=== PATIENT | female | born 1935 | race African-American/Black ===

== ENCOUNTER 2017-02-19 19:07 | Inpatient (IN) ==
[2017-02-19] MEDS ORDERED: SODIUM CHLORIDE 0.9% 500 ML IV STA (20:02)
[2017-02-19] MEDS ORDERED: hydrALAZINE 20 MG/1 ML VIAL IV STA ×2 (20:10→22:00)
[2017-02-19 20:13] LABS: Basophils % 0.2 % (0.0-0.8); Immature Granulocytes % 0.5 %; Immature Granulocytes Absolute 0.05 #; Lymphocytes # 1.6 10*3/uL (1.4-4.0); Lymphocytes % 15.9 % (21.3-54.2); Mean Corpuscular HGB Conc 33.3 GM/DL (32-36); Mean Corpuscular Hemoglobin 29 PG (27-34); Mean Corpuscular Volume 87.7 FL (87-102); Mean Platelet Volume 10.4 FL (9.6-12.0); Monocytes % 9.8 % (1.7-12.7); Neutrophils # 7.4 10*3/uL (1.4-7.4); Neutrophils % 73.6 % (38.7-73.9); Platelet Count 192 T/CUMM (130-400); Red Blood Count 4.79 MC/CUMM (3.8-5.5); Red Cell Distribution Width 14.2 % (9.3-17.3)
[2017-02-19] MEDS ORDERED: hydrALAZINE 20 MG/1 ML VIAL ONE (20:34)
[2017-02-19 20:42] LABS: Albumin 3.4 G/DL (3.4-5.0); Bilirubin,Total 0.8 MG/DL (0.2-1.0); Calcium 9.9 MG/DL (8.5-10.1); Magnesium 2.4 MG/DL (1.8-2.4); Potassium 3.8 MMOL/L (3.5-5.1); Total Protein 7.3 G/DL (6.4-8.3)
--- NOTE | 2017-02-19 20:44 | XRay Report ---
Referring Physician: Nirmal Mercado Exam: XR lumbar spine AP/LAT Date: February 19, 2017 at 8:11 PM Reason: Back pain Comparison: None Findings: The lumbar vertebral bodies are normal in height. The patient is slightly rotated on both the AP and lateral views, but there appears to be grade 1 anterolisthesis at L4-L5. There is also multilevel facet arthropathy which is particularly prominent at L4-L5. Mild multilevel disc space narrowing is also present. No acute osseous process is identified. Prominent calcified plaque is noted at the abdominal aorta. Impression: Multilevel degenerative change at the lumbar spine as described above. PROCEDURE INTERPRETED AT [facility] DEPARTMENT OF RADIOLOGY Final Report Signed by: Dr. Alirio Romero
--- NOTE | 2017-02-19 21:27 | Emergency Department Note ---
Huy Dalal Manpreet, am scribing for, and in the presence of, Nirmal Mercado MD 20:16. Rogelio Dalal Charles R, MD, personally performed the services described in this documentation, ascribed by Braydon Son in my presence, and it is both accurate and complete . Arrival - Arrival Chief Complaint: Back ED Nursing Triage Note: C/O Lower back pain/strong odor to urine. Onset 2 weeks ago. Denies seeking medical attention about c/o until tonight. Denies fever. Mode of Arrival: Stretcher Source: Patient Time Seen by Provider: 02/19/17 19:20 - History of Present Illness HPI Narrative: Pt is a 81 y/o female, with PMHx of Breast CA, who presents to the ED with CC of back pain since 3 weeks ago. Pt also reports of increased urinary frequency and urinary incontinence. Pt lives alone in an apartment and states she has been in bed for three days. Pt denies CP, SOB, or dysuria. No other pains/ complaints reported to ED. Onset (ago): week(s) Consistency: constant Severity: moderate Severity scale (1-10): 3 Date of Last Menstrual Period: PM Allergies/Adverse Reactions: Allergies Allergy/AdvReac Type Severity Reaction Status Date / Time No Known Allergies Allergy Verified 02/19/17 19:15 Home Medications: Home Medications Medication Instructions Recorded Confirmed Type Donepezil [Aricept] 10 mg PO BEDTIME 02/19/17 02/19/17 History Furosemide Tab [Lasix Tab] 40 mg PO DAILY 02/19/17 02/19/17 History Losartan/Hydrochlorothiazide 1 each PO DAILY 02/19/17 02/19/17 History [Losartan-Hctz 100-25 mg Tab] Memantine HCl [Namenda XR] 14 mg PO DAILY 02/19/17 02/19/17 History Metoprolol Tartrate 100 mg PO DAILY 02/19/17 02/19/17 History Potassium Chloride [Klor-Con M20] 40 meq PO DAILY 02/19/17 02/19/17 History Sertraline [Zoloft] 50 mg PO DAILY 02/19/17 02/19/17 History Review of System - Review of System 12 point system: reviewed and no additional remarkable complaints except as stated - Review of System Constitutional: Absent: chills, diaphoresis, fever Respiratory: Absent: cough, respiratory distress, wheezing Cardiovascular: Absent: chest pain, dyspnea on exertion Genitourinary female: Absent: abnormal menses Musculoskeletal: Present: lower back pain. Absent: arm pain, leg pain Neurological: Absent: headache, weakness Medical,Surgical,& Family Hx - Medical History Reproductive: History of: Breast Cancer - Social History Smoking Status: Never smoker Frequency of Alcohol Use: None Type of Drug Use: None Exam Vital Signs: Vital Signs Temperature 98.5 F 02/19/17 19:07 Pulse Rate 79 02/19/17 19:07 Respiratory Rate 20 02/19/17 19:07 Blood Pressure 214/113 02/19/17 19:07 O2 Sat by Pulse Oximetry 98 02/19/17 19:07 - General General appearance: alert - Head Head exam: Present: atraumatic, normocephalic, normal inspection - Eye Eye exam: Present: normal appearance, PERRL, EOMI - ENT ENT exam: Present: normal exam, normal oropharynx, mucous membranes moist, TM's normal bilaterally - Neck Neck exam: Present: normal inspection, full ROM, trachea midline. Absent: tenderness - Chest Chest inspection: Present: normal inspection, symmetric chest wall rise - Respiratory Respiratory exam: Present: rhonchi (Bilateral Rhonchi). Absent: normal lung sounds bilaterally - Cardiovascular Cardiovascular exam: Present: regular rate, normal rhythm, normal heart sounds, murmur (3/6 Systolic murmur ) - Abdominal Exam Abdominal exam: Present: distention, tenderness, normal bowel sounds. Absent: soft - Extremities Exam Extremities exam: Present: normal inspection. Absent: tenderness - Back Exam Back exam: Present: tenderness. Absent: normal inspection, full ROM - Neurological Exam Neurological exam: Present: alert, oriented X3, CN II-XII intact, reflexes normal - Psychiatric Psychiatric exam: Present: normal affect, normal mood - Skin Skin exam: Present: warm, dry, intact, normal color, other (Sacral stage II decubitus). Absent: pallor Course - Consultations Consultation #1: Hospitalist will admit patient Time: 22:09 Results - Labs CBC & BMP: 02/19/17 20:01 02/19/17 20:01 Lab Results: I have reviewed the patients labs Labs: Laboratory Tests 02/19/17 20:01 WBC 10.0 RBC 4.79 Hgb 14.0 Hct 42.0 MCV 87.7 MCH 29 Lymph % (Auto) 15.9 L Scott # (Auto) 1.0 H Laboratory Tests 02/19/17 20:01 Sodium 143 Potassium 3.8 Chloride 106 Carbon Dioxide 26 BUN 23 H Creatinine 1.20 H Glucose 117 H AST 65 H Globulin 3.9 H Albumin/Globulin Ratio 0.8 L Laboratory Tests 02/19/17 20:02 Urine pH 5.0 Ur Specific [place] 1.023 Urine Protein 30 Urine Ketones 5 Urine Nitrate Positive H Urine Urobilinogen < 2.0 H Urine RBC 6 Urine WBC 4 - Diagnostic Findings Procedure: Chest x-ray: report reviewed by me (1. Cardiomegaly. 2. There is minimal atelectasis within the right lower lung zone and there is also mild density at the peripheral aspect of the left lower lung zone, which is favored to represent soft tissue artifact. However, consolidation/pleural fluid is difficult to exclude in this region.), CT: report reviewed by me (CT Head w/o Contrast: 1. No acute intracranial process is identified. 2. Mild generalized cerebral atrophy/volume loss and probable chronic microvascular ischemic change. ), X-ray: report reviewed by me (X-ray Lumbar Spine: Multlilevel degenerative change at the lumbar spine as described above.) Critical Care Time Critical Care Time: Yes Total Critical Care Time: 60 Disposition Clinical Impression: Strain of lumbar region, History of breast cancer recurrent, Confusion, Sacral decubitus ulcer, Hypertensive urgency, UTI (urinary tract infection) Case discussed with: patient Disposition: Still a Patient Condition: Guarded Time of Disposition: 22:10
[2017-02-19 21:34] LABS: Apearance,Urine Slightly Hazy (Clear); Bacteria,Urine Moderate /HPF (Few); Bilirubin,Urine Negative (Negative); Blood, Urine Moderate mg/dL (Negative); Glucose,Urine (UA) Negative (Negative); Ketones,Urine 5 mg/dL (Negative); Mucus,Urine Many /LPF (Occasional); Nitrite,Urine Positive (Negative); Protein,Urine 30 MG/DL; RBC,Urine 6 /HPF (0-4); Urine Color Yellow (Yellow); Urine Specific Gravity 1.023 (1.001-1.035); Urine Urobilinogen < 2.0 EU/DL (0.2-1.0); WBC,Urine 4 /HPF (0-6)
[2017-02-19] MEDS ORDERED: cefTRIAXone 1,000 MG in SODIUM CHLORIDE 0.9% 100 ML IV STA (21:49)
--- NOTE | 2017-02-19 21:58 | CT Report ---
Referring physician: Nirmal Mercado Exam: CT brain without contrast Date: February 19, 2017 Comparison: None Reason: Confusion, elevated blood pressure The patient is an Emergency Department patient on March 01, 2017. Technique: Axial images of the head were obtained without the use of contrast. Total DLP was 970.1 mGy*cm. Findings: There is mild generalized cerebral atrophy/volume loss. There are also areas of low attenuation within the cerebral white matter bilaterally. This is nonspecific but is most consistent with chronic microvascular ischemic change. No hydrocephalus or midline shift is present. There is no evidence of recent intracranial hemorrhage, abnormal mass effect or an acute infarction. No acute osseous process is seen. The mastoid air cells and visualized paranasal sinuses are clear. Impression: 1. No acute intracranial process is identified. 2. Mild generalized cerebral atrophy/volume loss and probable chronic microvascular ischemic change. The CT exam was performed using one or more of the following dose reduction techniques: Automated exposure control and adjustment of the mA and/or kV according to patient size. PROCEDURE INTERPRETED AT [facility] DEPARTMENT OF RADIOLOGY Final Report Signed by: Dr. Alirio Romero
[2017-02-19] MEDS ORDERED: cefTRIAXone 1,000 MG VIAL ONE (22:09)
--- NOTE | 2017-02-19 22:16 | XRay Report ---
Referring Physician: Nirmal Mercado Exam: XR chest 1V portable Date: February 19, 2017 at 9:55 PM Reason: Altered mental status Comparison: None Findings: The cardiac silhouette is enlarged. There is minimal atelectasis within the right lower lung zone. Density is also seen at the peripheral aspect of the left lower lung zone. This is favored to represent soft tissue artifact, but consolidation or mild pleural fluid is difficult to exclude in this region. No pneumothorax is identified. No acute osseous process is seen. Surgical clips are noted at the left axilla. Impression: 1. Cardiomegaly. 2. There is minimal atelectasis within the right lower lung zone and. There is also mild density at the peripheral aspect of the left lower lung zone, which is favored to represent soft tissue artifact. However, consolidation/pleural fluid is difficult to exclude in this region. PROCEDURE INTERPRETED AT [facility] DEPARTMENT OF RADIOLOGY Final Report Signed by: Dr. Alirio Romero
[2017-02-19] MEDS ORDERED: ACETAMINOPHEN 325 MG TABLET PO PRN (23:25)
[2017-02-19] MEDS ORDERED: hydrALAZINE 20 MG/1 ML VIAL IV PRN (23:56)
--- NOTE | 2017-02-19 23:59 | Hospitalist History & Physical ---
Assessment and Plan (1) Confusion Status: Acute Current Visit: Yes (2) Sacral decubitus ulcer Status: Acute Current Visit: Yes (3) Hypertensive urgency Status: Acute Current Visit: Yes (4) UTI (urinary tract infection) Status: Acute Assessment and plan: We will admit patient our service. Consult wound care. We will also consult physical therapy to evaluate the patient. Patient also need social media community manager involved. She definitely has urinary tract infection with a positive nitrites we need to follow up on the results of the culture. Continue home meds as appropriate. Given her situation I do not know how compliant she has been with her meds. We have some as needed hydralazine for elevated blood pressure. Reevaluate patient in the morning and adjust plans as appropriate Current Visit: Yes History of Present Illness Chief complaint: Skin breakdown and soiling on herself History of present illness: Ms. Espino is a 81 year old female with Past medical history significant for breast cancer hypertension presents to our hospital tonight. According to the patient and she does have a history of dementia per review of her medications she could walk 2 weeks ago. She used the aid of a walker. She lives in apartment by herself. She reports for the past 2 weeks she really has not able to get out and walk. She says her son comes by and makes her breakfast in the mornings. Otherwise she lives alone. Her sister called check on her she could not get to the phone. Her sister arrived at the apartment and so what condition she was in and called EMS. EMS brought her up to our hospital for further evaluation. I was consulted to admit her through the emergency room Home Medications Medication Instructions Recorded Confirmed Type Donepezil [Aricept] 10 mg PO BEDTIME 02/19/17 02/19/17 History Furosemide Tab [Lasix Tab] 40 mg PO DAILY 02/19/17 02/19/17 History Losartan/Hydrochlorothiazide 1 each PO DAILY 02/19/17 02/19/17 History [Losartan-Hctz 100-25 mg Tab] Memantine HCl [Namenda XR] 14 mg PO DAILY 02/19/17 02/19/17 History Metoprolol Tartrate 100 mg PO DAILY 02/19/17 02/19/17 History Potassium Chloride [Klor-Con M20] 40 meq PO DAILY 02/19/17 02/19/17 History Sertraline [Zoloft] 50 mg PO DAILY 02/19/17 02/19/17 History Allergies Allergy/AdvReac Type Severity Reaction Status Date / Time No Known Allergies Allergy Verified 02/19/17 19:15 Medical,Surgical,& Family Hx - Medical History Reproductive: History of: Breast Cancer - Surgical History Reproductive Surgeries: Surgical HX of;: Breast Surgery, Hysterectomy - Family History Family History: Reports;: Family Cancer, Family Stroke - Social History Smoking Status: Never smoker Frequency of Alcohol Use: None Type of Drug Use: None 12 point system: reviewed and no additional remarkable complaints except as stated Exam - Constitutional Vitals: Period Temp Pulse Resp BP Sys/Carl Pulse Ox Last 24 Hr 98.5 F-98.5 F 79-79 20-20 214-214/113-113 98 - General General appearance: alert somewhat confused - Head Head exam: Present: atraumatic, normocephalic, normal inspection - Eye Eye exam: Present: normal appearance, PERRL, EOMI - ENT ENT exam: Present: normal exam, normal oropharynx, mucous membranes moist, TM's normal bilaterally - Neck Neck exam: Present: normal inspection, full ROM, trachea midline. - Chest Chest inspection: Present: normal inspection, symmetric chest wall rise - Respiratory Respiratory exam: Present: Grossly clear - Cardiovascular Cardiovascular exam: Present: regular rate, normal rhythm, normal heart sounds, systolic murmur - Abdominal Exam Abdominal exam: Present: distention, tenderness, normal bowel sounds. Absent: soft - Extremities Exam Extremities exam: Present: normal inspection. Absent: tenderness - Back Exam Back exam: Present: tenderness. Absent: normal inspection, full ROM - Neurological Exam Neurological exam: Present: alert, oriented X3, CN II-XII intact, reflexes normal - Psychiatric Psychiatric exam: Present: normal affect, normal mood - Skin Skin exam: Present: warm, dry, intact, normal color, patient has some skin breakdown on her sacral area most likely stage II Results - Labs CBC & BMP: 02/19/17 20:01 02/19/17 20:01
[2017-02-20] MEDS: SODIUM CHLORIDE 0.9% 1,000 ML IV SCH ×2 (02:11→18:45)
[2017-02-20 05:49] LABS: Basophils % 0.2 % (0.0-0.8); Hematocrit 41.4 VOL% (35.7-47.0); Hemoglobin 13.5 GM/DL (12.0-16.0); Immature Granulocytes % 0.4 %; Immature Granulocytes Absolute 0.04 #; Lymphocytes # 1.2 10*3/uL (1.4-4.0); Lymphocytes % 13.1 % (21.3-54.2); Mean Corpuscular HGB Conc 32.6 GM/DL (32-36); Mean Corpuscular Hemoglobin 28 PG (27-34); Mean Platelet Volume 11.5 FL (9.6-12.0); Monocytes # 0.8 10*3/uL (0.11-0.8); Neutrophils % 77.3 % (38.7-73.9); Platelet Count 171 T/CUMM (130-400); Red Blood Count 4.76 MC/CUMM (3.8-5.5); Red Cell Distribution Width 14.5 % (9.3-17.3); White Blood Count 9.1 T/CUMM (4-12)
[2017-02-20 06:10] LABS: Hypochromasia 1+; Ovalocytes Slight; Platelet Estimate Normal
[2017-02-20 06:35] LABS: Calcium 9.5 MG/DL (8.5-10.1); Osmolality,Calculated 284.1 MOS/KG (273-304); Potassium 5.1 MMOL/L (3.5-5.1)
--- NOTE | 2017-02-20 08:25 | Physician Query Form ---
CLICK EDIT DOCUMENT TO SELECT QUERY ANSWER --> OK --> SIGN Sara Chow RN, CCDS Certified Clinical Closed Circuit Screen Watcher W) [phone] (f) [phone] [email or web address] PROVIDERS: Make your selection(s) from the choices in EACH section by typing an "x" and enter comments in the comment section. Please use your independent medical judgment in providing your response. This request does not imply that any particular answer is desired or expected. CLINICAL INDICATORS: (Providers should not edit this section) The medical record indicates that the patient was admitted with an UTI, Confusion, "alert somewhat confused", "history of dementia" and the patient had a CT of the brain. ACUITY: ( x) Acute ( ) Acute on Chronic ( ) Chronic ( ) Clinically unable to determine NATURE: ( ) Delirium due to general medical condition ( ) Dementia ( ) Encephalopathy (x ) Encephalopathy (Infectious) ( ) Unconscious ( ) Transient level of awareness ( ) Comatose ( ) Locked-in State ( ) Persistent Vegetative State ( ) Other, please specify: ( ) Clinically unable to determine Please indicate the underlying cause of the altered mental status (CHECK ALL THAT APPLY): ( ) Baseline dementia ( ) Alzheimer's disease ( ) Parkinson's disease ( ) Lewy body dementia ( ) Acute stroke ( ) Late effect of stroke ( ) Reactive (from emotional stress, psychological trauma) ( ) Due to narcotics/other drugs ( ) Post procedural delirium ( ) Transient ischemic attack ( ) Generalized cerebral edema ( ) Normal pressure hydrocephalus ( ) Psychiatric illness ( ) Other, please specify: ( ) Clinically unable to determine Please indicate if there is an infection, sepsis, dehydration or specific organ failure that is causing the dementia. Be specific with clarifying the relationship between that process and the mental status change. COMMENTS: Use of terms such as suspected, likely, or probable (associated with a specific diagnosis that is being evaluated, monitored, or treated as if it exists) are acceptable and can be restated in the discharge summary if not ruled out. MTDD
--- NOTE | 2017-02-20 09:05 | EKG Report ---
Stationary ECG Study [facility] ER Test Date: 02/19/2017 7:53:31 PM Pat Name: HANNAH KLEIN Department: Room: 223 Gender: F Audio Video Mechanic: : [id number] Requested by: Nirmal Chavez Order Number: [id number] Reading MD: LILIA KOEHLER Intervals Michael Rate: 73 P: 62 VA: 193 QRS: 158 QRSD: 96 T: 29 QT: 388 QTc: 414 Interpretive Statements SINUS RHYTHM At 73 bpm PATTERN CONSISTENT WITH PULMONARY DISEASE Possible old anterior NV NST POSSIBLE RIGHT VENTRICULAR HYPERTROPHY Electronically Signed On 02-25-17 15:14:10 CDT by LILIA KOEHLER [email or web address]
[2017-02-20] MEDS: ENOXAPARIN 40 MG/0.4 ML SYRINGE SUBCUT SCH (09:50)
[2017-02-20] MEDS: METOPROLOL TARTRATE 100 MG TABLET PO SCH (09:51)
[2017-02-20] MEDS: SERTRALINE 50 MG TABLET PO SCH (09:51)
[2017-02-20] MEDS: LOSARTAN/HCTZ 50-12.5 MG TABLET PO SCH (09:51)
[2017-02-20] MEDS: POTASSIUM CHLORIDE 20 MEQ TABLET PO SCH (09:51)
[2017-02-20] MEDS: FUROSEMIDE 40 MG TABLET PO SCH (09:51)
[2017-02-20] MEDS: MEMANTINE 5 MG TABLET PO SCH ×2 (09:51→22:05)
[2017-02-20] MEDS: DESITIN 4OZ/NYSTATIN 15 GRAM MIXTURE PASTE TOP SCH ×2 (11:45→22:05)
[2017-02-20] MEDS ORDERED: TUBERCULIN SKIN TEST 0.1 ML SYRINGE INTRADERM ONE (12:00)
--- NOTE | 2017-02-20 12:08 | Hospitalist Progress Note ---
Assessment and Plan - Time spent with patient Time spent with patient: Greater than 30 minutes (1) UTI (urinary tract infection) Status: Acute Assessment and plan: Continue current management. Current Visit: Yes (2) Weakness Status: Acute Assessment and plan: We will obtain a CT of the lumbar region. PT, OT and social work referral. I expect the patient will require rehab. Current Visit: Yes (3) Incontinence Status: Acute Assessment and plan: We will obtain a CT of the lumbar region. Current Visit: Yes (4) HTN (hypertension) Status: Acute Assessment and plan: Well-controlled continue current management. Current Visit: Yes Hospitalist: Subjective Interval history: Ms. Espino has no complaints. She is difficult to obtain information from however it appears she has been having progressively worsening weakness and unable to obtain any information regarding timeline of her incontinence. Exam - Constitutional Vitals: Period Temp Pulse Resp BP Sys/Carl Pulse Ox Last 24 Hr 98 F-99.4 F 74-83 17-20 162-168/66-81 95-98 General appearance: no acute distress - Head Head exam: Present: normocephalic, atraumatic - Eye Eye exam: Present: EOMI Pupils: Present: FREDDY - ENT ENT exam: Present: normal exam - Neck Neck exam: Present: normal inspection - Respiratory Respiratory exam: Present: clear to auscultation bilaterally. Absent: rhonchi, wheezes - Cardiovascular Cardiovascular exam: Present: regular rate and rhythm. Absent: gallop, rubs, systolic murmur - GI/Abdominal GI/Abdominal exam: Present: normal bowel sounds, soft. Absent: distended, firm , guarding, tenderness, rebound - Extremities Exam Extremities exam: Present: normal inspection. Absent: calf tenderness, edema - Neurological Exam Neurological exam: Present: other (Difficult to assess strength exam of her lower extremities) Results - Labs CBC & BMP: 02/20/17 04:30 02/20/17 04:30 Lab Results: I have reviewed the past 24 hour labs
--- NOTE | 2017-02-20 14:52 | CT Report ---
Exam: CT lumbar spine without contrast Date: February 20, 2017 Comparison: Lumbar spine x-rays February 19, 2017 Reason: Lower extremity weakness and incontinence Technique: Axial images of the lumbar spine were obtained without the use of contrast. Sagittal reformatted images were also acquired. Total DLP is 907.7 mGy*cm. Findings: There is minimal curvature of the mid lumbar spine to the left. Grade 1 anterolisthesis is also seen at L4-L5 (0.4 cm). No pars interarticularis defects are identified. The lumbar vertebral bodies are normal in height. There is mild disc space narrowing at the lower thoracic spine and L1-L2. Disc space heights otherwise appear fairly well maintained. Anterior marginal spurring is noted at multiple levels. There is mild degenerative change at the SI joints, mainly on the left. At T11-T12, there is a small posterior marginal osteophyte and mild to moderate bilateral facet arthropathy. There is minimal narrowing of the spinal canal and mild right neuroforaminal narrowing. At T12-L1, there is minimal posterior marginal spurring and mild bilateral facet arthropathy. No significant spinal canal stenosis or neuroforaminal narrowing is seen. At L1-L2, there is minimal posterior marginal spurring and moderate bilateral facet arthropathy. A minimal diffuse posterior disc bulge is also suspected. No spinal canal stenosis or neuroforaminal narrowing is seen. At L2-L3, there is a diffuse posterior disc bulge and moderate to severe bilateral facet arthropathy. This produces mild to moderate narrowing of the spinal canal but no significant neuroforaminal narrowing. At L3-L4, there is a diffuse posterior disc bulge, ligamentum flavum hypertrophy and severe bilateral facet arthropathy. This produces severe narrowing of the spinal canal and mild to moderate right neuroforaminal narrowing. At L4-L5, there is a diffuse posterior disc bulge, ligamentum flavum hypertrophy and severe bilateral facet arthropathy. There is also uncovering of the disc. This produces severe narrowing of the spinal canal and bilateral neuroforaminal narrowing, which is likely severe. At L5-S1, there is a diffuse posterior disc bulge, posterior marginal spurring and severe bilateral facet arthropathy, mainly on the left. The posterior marginal spurring is most prominent in the foraminal regions, particularly on the left. This produces mild narrowing of the spinal canal, severe left neuroforaminal narrowing and moderate right neuroforaminal narrowing. Scattered arterial calcification is present. There is also mild focal cortical scarring versus a angiomyolipoma at the lower pole of the left kidney, measuring 1 cm on image 35, series 4. Impression: 1. Extensive multilevel degenerative change at the lumbar spine as above, most prominent at L4-L5 and L5-S1. 2. A small area of fat attenuation is seen at the anterior aspect of the lower pole of the left kidney. This could represent focal cortical scarring or a small angiomyolipoma. PROCEDURE INTERPRETED AT [facility] DEPARTMENT OF RADIOLOGY Final Report Signed by: Dr. Alirio Romero
[2017-02-20] MEDS ORDERED: cefTRIAXone 1,000 MG in SODIUM CHLORIDE 0.9% 100 ML IV SCH (21:00)
[2017-02-20] MEDS: DONEPEZIL 10 MG TABLET PO SCH (22:05)
[2017-02-21 08:01] LABS: Basophils % 0.2 % (0.0-0.8); Eosinophils % 0.4 % (0.00-10.9); Hematocrit 37.5 VOL% (35.7-47.0); Hemoglobin 12.2 GM/DL (12.0-16.0); Immature Granulocytes % 0.2 %; Immature Granulocytes Absolute 0.02 #; Lymphocytes # 2.3 10*3/uL (1.4-4.0); Lymphocytes % 28.8 % (21.3-54.2); Mean Corpuscular HGB Conc 32.5 GM/DL (32-36); Mean Corpuscular Hemoglobin 29 PG (27-34); Mean Corpuscular Volume 88.4 FL (87-102); Mean Platelet Volume 10.4 FL (9.6-12.0); Monocytes # 0.7 10*3/uL (0.11-0.8); Monocytes % 8.2 % (1.7-12.7); Neutrophils % 62.2 % (38.7-73.9); Platelet Count 161 T/CUMM (130-400); Red Blood Count 4.24 MC/CUMM (3.8-5.5); Red Cell Distribution Width 14.7 % (9.3-17.3); White Blood Count 8.1 T/CUMM (4-12)
[2017-02-21 08:26] LABS: Calcium 8.8 MG/DL (8.5-10.1); Potassium 3.3 MMOL/L (3.5-5.1)
[2017-02-21] MEDS: PIPERACILLIN/TAZOBACTAM 3,375 MG in SODIUM CHLORIDE 0.9% 100 ML IV SCH ×2 (08:51→16:25)
[2017-02-21] MEDS: SODIUM CHLORIDE 0.9% 1,000 ML IV SCH (08:52)
[2017-02-21] MEDS: LOSARTAN/HCTZ 50-12.5 MG TABLET PO SCH (08:57)
[2017-02-21] MEDS: POTASSIUM CHLORIDE 20 MEQ TABLET PO SCH (08:57)
[2017-02-21] MEDS: MEMANTINE 5 MG TABLET PO SCH ×2 (08:57→22:09)
[2017-02-21] MEDS: SERTRALINE 50 MG TABLET PO SCH (08:57)
[2017-02-21] MEDS: FUROSEMIDE 40 MG TABLET PO SCH (08:58)
[2017-02-21] MEDS: METOPROLOL TARTRATE 100 MG TABLET PO SCH (08:58)
[2017-02-21] MEDS: ENOXAPARIN 40 MG/0.4 ML SYRINGE SUBCUT SCH (08:58)
[2017-02-21] MEDS: DESITIN 4OZ/NYSTATIN 15 GRAM MIXTURE PASTE TOP SCH ×2 (08:58→22:13)
--- NOTE | 2017-02-21 16:23 | Hospitalist Progress Note ---
Assessment and Plan - Time spent with patient Time spent with patient: Greater than 30 minutes (1) UTI (urinary tract infection) Status: Acute Assessment and plan: Continue current management. Current Visit: Yes (2) Weakness Status: Acute Assessment and plan: PT, OT and social work referral. I expect the patient will require rehab. Current Visit: Yes (3) Incontinence Status: Acute Assessment and plan: CT reveals Degenerative disease. Current Visit: Yes (4) HTN (hypertension) Status: Acute Assessment and plan: Well-controlled continue current management. Current Visit: Yes Hospitalist: Subjective Interval history: No complaints. Exam - Constitutional Vitals: Period Temp Pulse Resp BP Sys/Carl Pulse Ox Last 24 Hr 97.4 F-99.3 F 63-77 20-24 116-163/55-85 94-98 General appearance: no acute distress - Head Head exam: Present: normocephalic, atraumatic - Eye Eye exam: Present: EOMI Pupils: Present: FREDDY - ENT ENT exam: Present: normal exam - Neck Neck exam: Present: normal inspection - Respiratory Respiratory exam: Present: clear to auscultation bilaterally. Absent: rhonchi, wheezes - Cardiovascular Cardiovascular exam: Present: regular rate and rhythm. Absent: gallop, rubs, systolic murmur - GI/Abdominal GI/Abdominal exam: Present: normal bowel sounds, soft. Absent: distended, firm , guarding, tenderness, rebound - Extremities Exam Extremities exam: Present: normal inspection. Absent: calf tenderness, edema Results - Labs CBC & BMP: 02/21/17 07:50 02/21/17 07:50 Lab Results: I have reviewed the past 24 hour labs
[2017-02-21] MEDS: DONEPEZIL 10 MG TABLET PO SCH (22:09)
[2017-02-22] MEDS: PIPERACILLIN/TAZOBACTAM 3,375 MG in SODIUM CHLORIDE 0.9% 100 ML IV SCH ×3 (01:15→17:43)
[2017-02-22 06:22] LABS: Basophils % 0.2 % (0.0-0.8); Eosinophils # 0.1 10*3/uL (0.0-0.87); Hemoglobin 10.9 GM/DL (12.0-16.0); Immature Granulocytes % 0.5 %; Immature Granulocytes Absolute 0.03 #; Lymphocytes # 1.7 10*3/uL (1.4-4.0); Lymphocytes % 28.5 % (21.3-54.2); Mean Corpuscular HGB Conc 32.1 GM/DL (32-36); Mean Corpuscular Hemoglobin 29 PG (27-34); Mean Corpuscular Volume 89.7 FL (87-102); Mean Platelet Volume 10.6 FL (9.6-12.0); Monocytes # 0.7 10*3/uL (0.11-0.8); Neutrophils # 3.6 10*3/uL (1.4-7.4); Neutrophils % 58.8 % (38.7-73.9); Platelet Count 162 T/CUMM (130-400); Red Blood Count 3.79 MC/CUMM (3.8-5.5); Red Cell Distribution Width 14.6 % (9.3-17.3); White Blood Count 6.1 T/CUMM (4-12)
[2017-02-22 06:52] LABS: Calcium 8.6 MG/DL (8.5-10.1); Osmolality,Calculated 288.8 MOS/KG (273-304); Potassium 3.6 MMOL/L (3.5-5.1)
[2017-02-22] MEDS ORDERED: TUBERCULIN SKIN TEST 0.1 ML SYRINGE INTRADERM ONE (10:00)
[2017-02-22] MEDS: LOSARTAN/HCTZ 50-12.5 MG TABLET PO SCH (10:11)
[2017-02-22] MEDS: FUROSEMIDE 40 MG TABLET PO SCH (10:11)
[2017-02-22] MEDS: METOPROLOL TARTRATE 100 MG TABLET PO SCH (10:12)
[2017-02-22] MEDS: MEMANTINE 5 MG TABLET PO SCH ×2 (10:12→20:39)
[2017-02-22] MEDS: SERTRALINE 50 MG TABLET PO SCH (10:12)
[2017-02-22] MEDS: POTASSIUM CHLORIDE 20 MEQ TABLET PO SCH (10:12)
[2017-02-22] MEDS: ENOXAPARIN 40 MG/0.4 ML SYRINGE SUBCUT SCH (10:13)
[2017-02-22] MEDS: DESITIN 4OZ/NYSTATIN 15 GRAM MIXTURE PASTE TOP SCH ×2 (10:13→20:39)
--- NOTE | 2017-02-22 11:38 | Case Mgmt Physician Query Form ---
TB Signs and Symptoms Screening ([place]) INSTRUCTIONS: To be completed annually on residents/staff with a significant Tuberculin Skin Test (TST) upon admission/hire or a prior significant TST. To be completed on all staff at hire. Please respond to each listed symptom with an (X) in either the "YES" or "NO" box. Do you currently have any of the following symptoms: YES NO ( ) (x ) A cough If yes, is it: ( ) Productive ( ) Non- productive ( ) (x ) Hemoptysis (spitting up blood) ( ) (x ) Chest pains ( ) (x ) Weight Loss ( ) (x ) Fever ( ) (x ) Night Sweats (x ) ( ) Weakness ( ) (x) Loss of Appetite ( ) (x ) Difficulty Breathing If you answered YES" to any of the above questions, how long have symptoms been present? Comments: weeks MTDD
--- NOTE | 2017-02-22 13:13 | Hospitalist Progress Note ---
Assessment and Plan - Time spent with patient Time spent with patient: Greater than 30 minutes (1) UTI (urinary tract infection) Status: Acute Assessment and plan: Continue current management. Current Visit: Yes (2) Weakness Status: Acute Assessment and plan: PT, OT and social work referral. I expect the patient will require rehab. Current Visit: Yes (3) Incontinence Status: Acute Assessment and plan: CT reveals Degenerative disease. Current Visit: Yes (4) HTN (hypertension) Status: Acute Assessment and plan: Well-controlled continue current management. Current Visit: Yes Hospitalist: Subjective Interval history: No complaints. She remains weak. Exam - Constitutional Vitals: Period Temp Pulse Resp BP Sys/Carl Pulse Ox Last 24 Hr 97.5 F-98.3 F 60-71 20-20 135-162/47-75 99-99 General appearance: no acute distress - Head Head exam: Present: normocephalic, atraumatic - Eye Eye exam: Present: EOMI Pupils: Present: FREDDY - ENT ENT exam: Present: normal exam - Neck Neck exam: Present: normal inspection - Respiratory Respiratory exam: Present: clear to auscultation bilaterally. Absent: rhonchi, wheezes - Cardiovascular Cardiovascular exam: Present: regular rate and rhythm. Absent: gallop, rubs, systolic murmur - GI/Abdominal GI/Abdominal exam: Present: normal bowel sounds, soft. Absent: distended, firm , guarding, tenderness, rebound - Extremities Exam Extremities exam: Present: normal inspection. Absent: calf tenderness, edema Results - Labs CBC & BMP: 02/22/17 05:39 02/22/17 05:39 Lab Results: I have reviewed the past 24 hour labs
[2017-02-22] MEDS: SODIUM CHLORIDE 0.9% 1,000 ML IV SCH ×2 (14:15→14:30)
[2017-02-22] MEDS: DONEPEZIL 10 MG TABLET PO SCH (20:39)
[2017-02-23] MEDS: PIPERACILLIN/TAZOBACTAM 3,375 MG in SODIUM CHLORIDE 0.9% 100 ML IV SCH ×4 (01:06→23:59)
[2017-02-23] MEDS: LOSARTAN/HCTZ 50-12.5 MG TABLET PO SCH (10:29)
[2017-02-23] MEDS: METOPROLOL TARTRATE 100 MG TABLET PO SCH (10:30)
[2017-02-23] MEDS: POTASSIUM CHLORIDE 20 MEQ TABLET PO SCH (10:31)
[2017-02-23] MEDS: FUROSEMIDE 40 MG TABLET PO SCH (10:31)
[2017-02-23] MEDS: SERTRALINE 50 MG TABLET PO SCH (10:31)
[2017-02-23] MEDS: MEMANTINE 5 MG TABLET PO SCH ×2 (10:32→20:30)
[2017-02-23] MEDS: ENOXAPARIN 40 MG/0.4 ML SYRINGE SUBCUT SCH (10:32)
[2017-02-23] MEDS: DESITIN 4OZ/NYSTATIN 15 GRAM MIXTURE PASTE TOP SCH ×2 (10:33→20:31)
--- NOTE | 2017-02-23 10:49 | Hospitalist Progress Note ---
Assessment and Plan - Time spent with patient Time spent with patient: Greater than 30 minutes (1) UTI (urinary tract infection) Status: Acute Assessment and plan: Continue current management. Current Visit: Yes (2) Weakness Status: Acute Assessment and plan: PT, OT and social work referral. I expect the patient will require rehab. Current Visit: Yes (3) Incontinence Status: Acute Assessment and plan: CT reveals Degenerative disease. Current Visit: Yes (4) HTN (hypertension) Status: Acute Assessment and plan: Well-controlled continue current management. Current Visit: Yes Hospitalist: Subjective Interval history: No complaints or overnight events. Exam - Constitutional Vitals: Period Temp Pulse Resp BP Sys/Carl Pulse Ox Last 24 Hr 97.8 F-98.7 F 65-85 18-20 130-156/55-81 97-99 General appearance: no acute distress - Head Head exam: Present: normocephalic, atraumatic - Eye Eye exam: Present: EOMI Pupils: Present: FREDDY - ENT ENT exam: Present: normal exam - Neck Neck exam: Present: normal inspection - Respiratory Respiratory exam: Present: clear to auscultation bilaterally. Absent: rhonchi, wheezes - Cardiovascular Cardiovascular exam: Present: regular rate and rhythm. Absent: gallop, rubs, systolic murmur - GI/Abdominal GI/Abdominal exam: Present: normal bowel sounds, soft. Absent: distended, firm , guarding, tenderness, rebound - Extremities Exam Extremities exam: Present: normal inspection. Absent: calf tenderness, edema Results - Labs CBC & BMP: 02/22/17 05:39 02/22/17 05:39 Lab Results: I have reviewed the past 24 hour labs
[2017-02-23] MEDS: SODIUM CHLORIDE 0.9% 1,000 ML IV SCH (17:05)
[2017-02-23] MEDS: DONEPEZIL 10 MG TABLET PO SCH (20:30)
[2017-02-24 05:25] LABS: Basophils % 0.6 % (0.0-0.8); Eosinophils # 0.1 10*3/uL (0.0-0.87); Eosinophils % 1.9 % (0.00-10.9); Hematocrit 33.3 VOL% (35.7-47.0); Hemoglobin 11.1 GM/DL (12.0-16.0); Immature Granulocytes % 0.6 %; Immature Granulocytes Absolute 0.03 #; Lymphocytes # 1.8 10*3/uL (1.4-4.0); Mean Corpuscular HGB Conc 33.3 GM/DL (32-36); Mean Corpuscular Hemoglobin 29 PG (27-34); Mean Corpuscular Volume 87.9 FL (87-102); Mean Platelet Volume 10.2 FL (9.6-12.0); Monocytes # 0.6 10*3/uL (0.11-0.8); Monocytes % 12.2 % (1.7-12.7); Neutrophils # 2.3 10*3/uL (1.4-7.4); Neutrophils % 47.7 % (38.7-73.9); Platelet Count 175 T/CUMM (130-400); Red Blood Count 3.79 MC/CUMM (3.8-5.5); Red Cell Distribution Width 14.5 % (9.3-17.3); White Blood Count 4.8 T/CUMM (4-12)
[2017-02-24 05:38] LABS: Calcium 9.1 MG/DL (8.5-10.1); Osmolality,Calculated 292.6 MOS/KG (273-304)
[2017-02-24] MEDS: PIPERACILLIN/TAZOBACTAM 3,375 MG in SODIUM CHLORIDE 0.9% 100 ML IV SCH ×2 (10:31→23:35)
[2017-02-24] MEDS: LOSARTAN/HCTZ 50-12.5 MG TABLET PO SCH (10:32)
[2017-02-24] MEDS: ENOXAPARIN 40 MG/0.4 ML SYRINGE SUBCUT SCH (10:32)
[2017-02-24] MEDS: POTASSIUM CHLORIDE 20 MEQ TABLET PO SCH (10:33)
[2017-02-24] MEDS: FUROSEMIDE 40 MG TABLET PO SCH (10:33)
[2017-02-24] MEDS: SERTRALINE 50 MG TABLET PO SCH (10:33)
[2017-02-24] MEDS: METOPROLOL TARTRATE 100 MG TABLET PO SCH (10:34)
[2017-02-24] MEDS: MEMANTINE 5 MG TABLET PO SCH ×2 (10:35→20:38)
[2017-02-24] MEDS: DESITIN 4OZ/NYSTATIN 15 GRAM MIXTURE PASTE TOP SCH ×2 (10:35→20:38)
--- NOTE | 2017-02-24 10:53 | Hospitalist Progress Note ---
Assessment and Plan - Time spent with patient Time spent with patient: Greater than 30 minutes (1) UTI (urinary tract infection) Status: Acute Assessment and plan: Continue current management. Current Visit: Yes (2) Weakness Status: Acute Assessment and plan: PT, OT and social work referral. I expect the patient will require rehab. Current Visit: Yes (3) Incontinence Status: Acute Assessment and plan: CT reveals Degenerative disease. Current Visit: Yes (4) HTN (hypertension) Status: Acute Assessment and plan: Well-controlled continue current management. Current Visit: Yes Hospitalist: Subjective Interval history: No complaints or overnight events. Exam - Constitutional Vitals: Period Temp Pulse Resp BP Sys/Carl Pulse Ox Last 24 Hr 97.6 F-98.6 F 62-79 18-20 136-156/61-65 98-99 General appearance: no acute distress - Head Head exam: Present: normocephalic, atraumatic - Eye Eye exam: Present: EOMI Pupils: Present: FREDDY - ENT ENT exam: Present: normal exam - Neck Neck exam: Present: normal inspection - Respiratory Respiratory exam: Present: clear to auscultation bilaterally. Absent: rhonchi, wheezes - Cardiovascular Cardiovascular exam: Present: regular rate and rhythm. Absent: gallop, rubs, systolic murmur - GI/Abdominal GI/Abdominal exam: Present: normal bowel sounds, soft. Absent: distended, firm , guarding, tenderness, rebound - Extremities Exam Extremities exam: Present: normal inspection. Absent: calf tenderness, edema Results - Labs CBC & BMP: 02/24/17 04:56 02/24/17 04:56 Lab Results: I have reviewed the past 24 hour labs
[2017-02-24] MEDS: SODIUM CHLORIDE 0.9% 1,000 ML IV SCH ×3 (11:00→23:34)
[2017-02-24] MEDS: DONEPEZIL 10 MG TABLET PO SCH (20:38)
[2017-02-25] MEDS: LOSARTAN/HCTZ 50-12.5 MG TABLET PO SCH (08:30)
[2017-02-25] MEDS: POTASSIUM CHLORIDE 20 MEQ TABLET PO SCH (08:30)
[2017-02-25] MEDS: METOPROLOL TARTRATE 100 MG TABLET PO SCH (08:31)
[2017-02-25] MEDS: FUROSEMIDE 40 MG TABLET PO SCH (08:31)
[2017-02-25] MEDS: ENOXAPARIN 40 MG/0.4 ML SYRINGE SUBCUT SCH (08:31)
[2017-02-25] MEDS: MEMANTINE 5 MG TABLET PO SCH (08:31)
[2017-02-25] MEDS: SERTRALINE 50 MG TABLET PO SCH (08:32)
[2017-02-25] MEDS: DESITIN 4OZ/NYSTATIN 15 GRAM MIXTURE PASTE TOP SCH (08:32)
[2017-02-25] MEDS: PIPERACILLIN/TAZOBACTAM 3,375 MG in SODIUM CHLORIDE 0.9% 100 ML IV SCH (08:36)
--- NOTE | 2017-02-25 10:41 | Discharge Summary ---
Hospital Course - Hospital Course Hospital Course: Ms Espino was admitted with weakness and UTI. She was initiated on IV antibiotics. Urine culture revealed E coli sensitive to treatment. Head CT revealed no acute process. Lumbar CT was obtained to evaluate weakness and this revealed degenerative arthritic disease. Patient was seen by PT and social work arranged rehab. By discharge she had met maximum benefit of hospitalization. I spent 35 minutes coordinating this discharge. - Time spent with patient Time with patient DS: Greater than 30 minutes Diagnosis - Discharge Diagnosis (1) UTI (urinary tract infection) Status: Acute (2) Weakness Status: Acute (3) Incontinence Status: Acute (4) HTN (hypertension) Status: Acute Discharge Plan - Discharge Data Disposition: Disch/Xfer-Ip Rehab Fac Condition at Discharge: Stable Discharge Diet: advance to your usual diet Activity: resume usual activities as tolerated - Discharge Medications Continue Furosemide Tab [Lasix Tab] 40 mg PO DAILY Donepezil [Aricept] 10 mg PO BEDTIME Memantine HCl [Namenda XR] 14 mg PO DAILY Losartan/Hydrochlorothiazide [Losartan-Hctz 100-25 mg Tab] 1 each PO DAILY Metoprolol Tartrate 100 mg PO DAILY Potassium Chloride [Klor-Con M20] 40 meq PO DAILY Sertraline [Zoloft] 50 mg PO DAILY - Follow Up or Referral - Forms/Instructions Exam - Constitutional Vitals: Period Temp Pulse Resp BP Sys/Carl Pulse Ox Last 24 Hr 97.9 F-99.1 F 52-67 18-20 132-177/59-90 94-100 General appearance: normal weight, no acute distress - Head Head exam: Present: normal inspection, normocephalic, atraumatic - Eye Eye exam: Present: EOMI Pupils: Present: FREDDY - ENT ENT exam: Present: normal exam - Neck Neck exam: Present: normal inspection - Respiratory Respiratory exam: Present: clear to auscultation bilaterally. Absent: accessory muscle use, prolonged expiratory phase, wheezes - Cardiovascular Cardiovascular exam: Present: regular rate and rhythm. Absent: bradycardia, irregular rhythm, systolic murmur - GI/Abdominal GI/Abdominal exam: Present: normal bowel sounds. Absent: ascites, hypoactive bowel sounds - Extremities Exam Extremities exam: Present: normal inspection DS: Provider Date of admission: 02/19/17 23:25 Primary care physician: . No PCP Attending physician on admission: Juve Mills MD Consults: 02/19/17 23:54 Consult to Case Mgmt/Social Srvs [CONS] Routine Reason for Case Mgmt/Social Srvs: Swingbed/SNF/Longterm Consult Comment: Patient lives alone Consult to Physical Therapy [CONS] Routine Reason for Physical Therapy: Evaluate and Treat 02/20/17 00:41 Consult to Dietitian [CONS] Routine Reason for Dietitian: Dietary Consult Discharging clinician: Roxanna Peck MD Expected date of discharge: 02/25/17
[2017-02-25 12:50] VITALS: BP 149/77
[2017-02-25] MEDS: SODIUM CHLORIDE 0.9% 1,000 ML IV SCH (15:58)
== END 2017-02-25 15:50 | DRG 689 ==
LOC: EDUNIT# → N.ED 19:07 → N.EDINP 23:25 → SUATTDRO 23:25 → N.2E 02-20 00:02
PROVIDERS: ADMIT Internal Medicine; ATTEND Internal Medicine

== ENCOUNTER 2019-01-21 07:53 | Inpatient (IN) ==
[2019-01-21] MEDS ORDERED: LABETALOL 20 MG/4 ML SYRINGE IV STA ×2 (08:08→09:05)
[2019-01-21] MEDS ORDERED: LABETALOL 20 MG/4 ML SYRINGE IV ONE (08:09)
[2019-01-21 08:13] LABS: Basophils % 0.3 % (0.0-0.8); Eosinophils % 0.3 % (0.00-10.9); Hematocrit 41.6 VOL% (35.7-47.0); Hemoglobin 12.9 GM/DL (12.0-16.0); Immature Granulocytes % 0.2 %; Immature Granulocytes Absolute 0.02 #; Lymphocytes # 2.7 10*3/uL (1.4-4.0); Lymphocytes % 30.6 % (21.3-54.2); Mean Corpuscular Hemoglobin 28 PG (27-34); Mean Corpuscular Volume 89.8 FL (87-102); Mean Platelet Volume 10.6 FL (9.6-12.0); Monocytes # 0.3 10*3/uL (0.11-0.8); Monocytes % 3.1 % (1.7-12.7); Neutrophils # 5.9 10*3/uL (1.4-7.4); Neutrophils % 65.5 % (38.7-73.9); Platelet Count 229 T/CUMM (130-400); Red Blood Count 4.63 MC/CUMM (3.8-5.5); Red Cell Distribution Width 14.8 % (9.3-17.3)
[2019-01-21 08:49] LABS: Albumin 3.2 G/DL (3.4-5.0); Bilirubin,Total 0.4 MG/DL (0.2-1.0); Calcium 9.1 MG/DL (8.5-10.1); Osmolality,Calculated 286.1 MOS/KG (273-304); Potassium 3.6 MMOL/L (3.5-5.1); Total Protein 7.4 G/DL (6.4-8.3)
[2019-01-21 09:12] LABS: Amorphous Crystals,Urine Occasional /HPF (Few); Apearance,Urine CLOUDY (Clear); Bacteria,Urine Occasional /HPF (Few); Bilirubin,Urine Negative (Negative); Blood, Urine Moderate mg/dL (Negative); Glucose,Urine (UA) 50 mg/dL (Negative); Hyaline Casts,Urine 1 /LPF (0-3); Ketones,Urine Negative (Negative); Mucus,Urine Occasional /LPF (Occasional); Nitrite,Urine Negative (Negative); Protein,Urine Negative; RBC,Urine 43 /HPF (0-4); Squamous Epithelial Cell,Urine Occasional /HPF (0-10); Urine Color Yellow (Yellow); Urine Urobilinogen < 2.0 EU/DL (0.2-1.0); WBC,Urine 1 /HPF (0-6)
[2019-01-21] MEDS ORDERED: ONDANSETRON 4 MG/2 ML VIAL IV PRN (10:40)
[2019-01-21] MEDS ORDERED: ACETAMINOPHEN 325 MG TABLET PO PRN (10:40)
[2019-01-21 10:50] LABS: ABG Base Excess -0.9 MMOL/L (-2.5-2.5); ABG HCO3 23.6 MMOL/L (20-26); ABG Oxygen Saturation 94.7 % (95-100); ABG PH 7.213 (7.35-7.45); ABG PO2 88.1 MM HG (80-95); ABG TCO2 26.6 MMOL/L (23-27)
[2019-01-21 10:53] LABS: ABG PCO2 73.1 MM HG (35-48)
[2019-01-21 12:53] LABS: Hematocrit 43.4 VOL% (35.7-47.0); Hemoglobin 13.2 GM/DL (12.0-16.0)
[2019-01-21] MEDS ORDERED: LORazepam 2 MG/1 ML VIAL ONE (13:27)
[2019-01-21] MEDS ORDERED: LORazepam 2 MG/1 ML VIAL IV STA (13:28)
[2019-01-21] MEDS: hydrALAZINE 20 MG/1 ML VIAL IV PRN ×2 (13:58→19:41)
[2019-01-21 19:45] LABS: Hematocrit 41.6 VOL% (35.7-47.0); Hemoglobin 12.4 GM/DL (12.0-16.0)
[2019-01-21] MEDS: PANTOPRAZOLE 40 MG VIAL IV SCH (20:29)
[2019-01-22] MEDS: hydrALAZINE 20 MG/1 ML VIAL IV PRN ×3 (04:00→20:34)
[2019-01-22 04:56] LABS: Basophils % 0.2 % (0.0-0.8); Hematocrit 38.7 VOL% (35.7-47.0); Hemoglobin 11.8 GM/DL (12.0-16.0); Immature Granulocytes % 0.4 %; Immature Granulocytes Absolute 0.04 #; Lymphocytes # 1.5 10*3/uL (1.4-4.0); Lymphocytes % 16.4 % (21.3-54.2); Mean Corpuscular HGB Conc 30.5 GM/DL (32-36); Mean Corpuscular Hemoglobin 27 PG (27-34); Mean Platelet Volume 11.1 FL (9.6-12.0); Monocytes # 0.7 10*3/uL (0.11-0.8); Monocytes % 7.8 % (1.7-12.7); Neutrophils # 6.9 10*3/uL (1.4-7.4); Neutrophils % 75.2 % (38.7-73.9); Platelet Count 234 T/CUMM (130-400); Red Blood Count 4.35 MC/CUMM (3.8-5.5); Red Cell Distribution Width 14.8 % (9.3-17.3); White Blood Count 9.2 T/CUMM (4-12)
[2019-01-22 05:05] LABS: PT Patient Result 10.4 SECS
[2019-01-22 05:20] LABS: Thyroid Stimulating Hormone 0.838 uIU/ml (0.358-3.74)
[2019-01-22] MEDS: PANTOPRAZOLE 40 MG VIAL IV SCH ×2 (08:42→20:33)
[2019-01-22 09:57] LABS: ABG Base Excess 3.7 MMOL/L (-2.5-2.5); ABG HCO3 27.7 MMOL/L (20-26); ABG Oxygen Saturation 98.8 % (95-100); ABG PH 7.443 (7.35-7.45); ABG TCO2 24.7 MMOL/L (23-27)
[2019-01-22] MEDS ORDERED: LABETALOL 20 MG/4 ML SYRINGE IV PRN (16:44)
[2019-01-22] MEDS ORDERED: ACETAMINOPHEN 650 MG SUPP RECTAL PRN (16:45)
[2019-01-23] MEDS ORDERED: METOPROLOL TARTRATE 5 MG/5 ML VIAL IV ONE (00:36)
[2019-01-23] MEDS: dilTIAZem Drip 125 MG/125 ML PREMIX IV SCH (02:51)
[2019-01-23 07:44] LABS: Apearance,Urine CLOUDY (Clear); Bacteria,Urine Moderate /HPF (Few); Bilirubin,Urine Negative (Negative); Blood, Urine Moderate mg/dL (Negative); Glucose,Urine (UA) Negative (Negative); Hyaline Casts,Urine 3 /LPF (0-3); Ketones,Urine 20 mg/dL (Negative); Mucus,Urine Moderate /LPF (Occasional); Nitrite,Urine Negative (Negative); Protein,Urine 30 MG/DL; RBC,Urine 12 /HPF (0-4); Squamous Epithelial Cell,Urine Occasional /HPF (0-10); Urine Specific Gravity 1.023 (1.001-1.035); Urine Urobilinogen < 2.0 EU/DL (0.2-1.0); WBC,Urine 4 /HPF (0-6)
[2019-01-23 07:45] LABS: Basophils % 0.2 % (0.0-0.8); Hematocrit 35.6 VOL% (35.7-47.0); Hemoglobin 11.1 GM/DL (12.0-16.0); Immature Granulocytes % 0.2 %; Immature Granulocytes Absolute 0.02 #; Lymphocytes # 1.8 10*3/uL (1.4-4.0); Lymphocytes % 21.1 % (21.3-54.2); Mean Corpuscular HGB Conc 31.2 GM/DL (32-36); Mean Corpuscular Hemoglobin 28 PG (27-34); Mean Corpuscular Volume 88.3 FL (87-102); Monocytes # 0.9 10*3/uL (0.11-0.8); Monocytes % 10.1 % (1.7-12.7); Neutrophils # 5.8 10*3/uL (1.4-7.4); Neutrophils % 68.4 % (38.7-73.9); Platelet Count 229 T/CUMM (130-400); Red Blood Count 4.03 MC/CUMM (3.8-5.5); Red Cell Distribution Width 15.4 % (9.3-17.3); White Blood Count 8.5 T/CUMM (4-12)
[2019-01-23 07:45] LABS: Urine Color Yellow (Yellow)
[2019-01-23 07:48] LABS: PT Patient Result 10.7 SECS
[2019-01-23 07:58] LABS: Calcium 10.6 MG/DL (8.5-10.1); Osmolality,Calculated 288.8 MOS/KG (273-304); Potassium 3.6 MMOL/L (3.5-5.1)
[2019-01-23] MEDS: METOPROLOL TARTRATE 50 MG TABLET PO SCH ×2 (09:00→21:44)
[2019-01-23] MEDS: LOSARTAN 50 MG TABLET PO SCH (09:00)
[2019-01-23] MEDS: PANTOPRAZOLE 40 MG VIAL IV SCH ×2 (09:00→21:44)
[2019-01-23] MEDS: ASPIRIN EC 81 MG TABLET PO SCH (09:00)
[2019-01-23] MEDS: SERTRALINE 50 MG TABLET PO SCH (09:00)
[2019-01-23] MEDS ORDERED: DEXTROSE 50% 25 GM/50 ML SYRINGE IV PRN (09:01)
[2019-01-23] MEDS ORDERED: GLUCAGON 1 MG VIAL IM PRN (09:01)
[2019-01-23] MEDS: INSULIN REGULAR 100 UNIT/ML SUBCUT SCH ×2 (13:23→17:54)
[2019-01-23] MEDS: ATORVASTATIN 10 MG TABLET PO SCH (21:44)
[2019-01-23] MEDS: DONEPEZIL 10 MG TABLET PO SCH (21:44)
[2019-01-24] MEDS: dilTIAZem Drip 125 MG/125 ML PREMIX IV SCH (02:32)
[2019-01-24] MEDS: INSULIN REGULAR 100 UNIT/ML SUBCUT SCH ×4 (02:32→18:21)
[2019-01-24 04:36] LABS: Basophils % 0.2 % (0.0-0.8); Eosinophils % 0.1 % (0.00-10.9); Hematocrit 35.9 VOL% (35.7-47.0); Immature Granulocytes % 0.3 %; Immature Granulocytes Absolute 0.03 #; Lymphocytes # 1.5 10*3/uL (1.4-4.0); Lymphocytes % 15.1 % (21.3-54.2); Mean Corpuscular HGB Conc 30.6 GM/DL (32-36); Mean Corpuscular Hemoglobin 27 PG (27-34); Mean Corpuscular Volume 88.9 FL (87-102); Mean Platelet Volume 11.1 FL (9.6-12.0); Monocytes # 0.9 10*3/uL (0.11-0.8); Monocytes % 9.3 % (1.7-12.7); Neutrophils # 7.6 10*3/uL (1.4-7.4); Platelet Count 211 T/CUMM (130-400); Red Blood Count 4.04 MC/CUMM (3.8-5.5); Red Cell Distribution Width 15.3 % (9.3-17.3); White Blood Count 10.1 T/CUMM (4-12)
[2019-01-24 04:46] LABS: PT Patient Result 10.7 SECS
[2019-01-24 05:34] LABS: Calcium 10.8 MG/DL (8.5-10.1); Osmolality,Calculated 291.8 MOS/KG (273-304); Potassium 3.6 MMOL/L (3.5-5.1)
[2019-01-24 05:44] LABS: Calcium 10.8 MG/DL (8.5-10.1); Osmolality,Calculated 291.8 MOS/KG (273-304); Potassium 3.4 MMOL/L (3.5-5.1); Prealbumin 14.9 MG/DL (20-40)
[2019-01-24] MEDS: ASPIRIN EC 81 MG TABLET PO SCH (09:02)
[2019-01-24] MEDS: LOSARTAN 50 MG TABLET PO SCH (09:02)
[2019-01-24] MEDS: SERTRALINE 50 MG TABLET PO SCH (09:02)
[2019-01-24] MEDS: METOPROLOL TARTRATE 50 MG TABLET PO SCH ×2 (09:02→20:43)
[2019-01-24] MEDS: PANTOPRAZOLE 40 MG VIAL IV SCH ×2 (09:02→20:43)
[2019-01-24] MEDS: ATORVASTATIN 10 MG TABLET PO SCH (20:43)
[2019-01-24] MEDS: DONEPEZIL 10 MG TABLET PO SCH (20:43)
[2019-01-25] MEDS: dilTIAZem Drip 125 MG/125 ML PREMIX IV SCH (03:22)
[2019-01-25] MEDS: INSULIN REGULAR 100 UNIT/ML SUBCUT SCH ×4 (03:23→17:40)
[2019-01-25 07:15] LABS: Basophils % 0.1 % (0.0-0.8); Eosinophils % 0.2 % (0.00-10.9); Hematocrit 36.5 VOL% (35.7-47.0); Hemoglobin 10.9 GM/DL (12.0-16.0); Immature Granulocytes % 0.5 %; Immature Granulocytes Absolute 0.04 #; Lymphocytes # 1.8 10*3/uL (1.4-4.0); Lymphocytes % 20.7 % (21.3-54.2); Mean Corpuscular HGB Conc 29.9 GM/DL (32-36); Mean Corpuscular Hemoglobin 27 PG (27-34); Mean Platelet Volume 10.9 FL (9.6-12.0); Monocytes # 0.8 10*3/uL (0.11-0.8); Monocytes % 8.9 % (1.7-12.7); Neutrophils % 69.6 % (38.7-73.9); Platelet Count 185 T/CUMM (130-400); Red Blood Count 4.01 MC/CUMM (3.8-5.5); Red Cell Distribution Width 15.3 % (9.3-17.3); White Blood Count 8.6 T/CUMM (4-12)
[2019-01-25 07:30] LABS: Calcium 10.1 MG/DL (8.5-10.1); Osmolality,Calculated 293.8 MOS/KG (273-304); Potassium 3.5 MMOL/L (3.5-5.1)
[2019-01-25] MEDS: PANTOPRAZOLE 40 MG VIAL IV SCH ×2 (08:29→21:39)
[2019-01-25] MEDS: METOPROLOL TARTRATE 50 MG TABLET PO SCH ×2 (08:30→21:39)
[2019-01-25] MEDS: ASPIRIN EC 81 MG TABLET PO SCH (08:31)
[2019-01-25] MEDS: SERTRALINE 50 MG TABLET PO SCH (08:31)
[2019-01-25] MEDS: LOSARTAN 50 MG TABLET PO SCH (08:31)
[2019-01-25] MEDS: ATORVASTATIN 10 MG TABLET PO SCH (21:39)
[2019-01-25] MEDS: DONEPEZIL 10 MG TABLET PO SCH (21:39)
[2019-01-26] MEDS: INSULIN REGULAR 100 UNIT/ML SUBCUT SCH ×4 (00:45→19:16)
[2019-01-26 04:56] LABS: Basophils % 0.3 % (0.0-0.8); Eosinophils # 0.1 10*3/uL (0.0-0.87); Eosinophils % 1.8 % (0.00-10.9); Hemoglobin 10.5 GM/DL (12.0-16.0); Immature Granulocytes % 0.4 %; Immature Granulocytes Absolute 0.03 #; Lymphocytes # 1.7 10*3/uL (1.4-4.0); Lymphocytes % 22.2 % (21.3-54.2); Mean Corpuscular Hemoglobin 27 PG (27-34); Mean Corpuscular Volume 90.2 FL (87-102); Mean Platelet Volume 10.9 FL (9.6-12.0); Monocytes # 0.7 10*3/uL (0.11-0.8); Monocytes % 9.3 % (1.7-12.7); Platelet Count 194 T/CUMM (130-400); Red Blood Count 3.88 MC/CUMM (3.8-5.5); Red Cell Distribution Width 15.2 % (9.3-17.3); White Blood Count 7.6 T/CUMM (4-12)
[2019-01-26 05:27] LABS: Calcium 9.9 MG/DL (8.5-10.1); Osmolality,Calculated 296.7 MOS/KG (273-304); Potassium 3.5 MMOL/L (3.5-5.1)
[2019-01-26 05:33] LABS: Calcium 10.1 MG/DL (8.5-10.1); Osmolality,Calculated 296.7 MOS/KG (273-304); Potassium 3.4 MMOL/L (3.5-5.1); Prealbumin 12.4 MG/DL (20-40)
[2019-01-26] MEDS: ASPIRIN EC 81 MG TABLET PO SCH (09:25)
[2019-01-26] MEDS: METOPROLOL TARTRATE 50 MG TABLET PO SCH ×2 (09:25→20:14)
[2019-01-26] MEDS: LOSARTAN 50 MG TABLET PO SCH (09:25)
[2019-01-26] MEDS: SERTRALINE 50 MG TABLET PO SCH (09:27)
[2019-01-26] MEDS: PANTOPRAZOLE 40 MG VIAL IV SCH ×2 (09:35→20:14)
[2019-01-26] MEDS: DONEPEZIL 10 MG TABLET PO SCH (20:14)
[2019-01-26] MEDS: dilTIAZem Drip 125 MG/125 ML PREMIX IV SCH (20:14)
[2019-01-26] MEDS: ATORVASTATIN 10 MG TABLET PO SCH (20:14)
[2019-01-27] MEDS: INSULIN REGULAR 100 UNIT/ML SUBCUT SCH ×4 (00:57→18:33)
[2019-01-27] MEDS: dilTIAZem Drip 125 MG/125 ML PREMIX IV SCH (03:58)
[2019-01-27 08:00] LABS: Basophils % 0.3 % (0.0-0.8); Eosinophils # 0.1 10*3/uL (0.0-0.87); Eosinophils % 1.3 % (0.00-10.9); Hematocrit 36.5 VOL% (35.7-47.0); Hemoglobin 11.2 GM/DL (12.0-16.0); Immature Granulocytes % 0.4 %; Immature Granulocytes Absolute 0.03 #; Lymphocytes # 1.7 10*3/uL (1.4-4.0); Lymphocytes % 21.5 % (21.3-54.2); Mean Corpuscular HGB Conc 30.7 GM/DL (32-36); Mean Corpuscular Hemoglobin 27 PG (27-34); Mean Corpuscular Volume 88.2 FL (87-102); Mean Platelet Volume 10.9 FL (9.6-12.0); Monocytes # 0.8 10*3/uL (0.11-0.8); Monocytes % 9.7 % (1.7-12.7); Neutrophils # 5.3 10*3/uL (1.4-7.4); Neutrophils % 66.8 % (38.7-73.9); Platelet Count 226 T/CUMM (130-400); Red Blood Count 4.14 MC/CUMM (3.8-5.5); Red Cell Distribution Width 14.8 % (9.3-17.3)
[2019-01-27 08:30] LABS: Albumin 2.4 G/DL (3.4-5.0); Bilirubin,Total 0.7 MG/DL (0.2-1.0); Calcium 9.6 MG/DL (8.5-10.1); Osmolality,Calculated 291.8 MOS/KG (273-304); Potassium 3.4 MMOL/L (3.5-5.1); Total Protein 6.7 G/DL (6.4-8.3)
[2019-01-27] MEDS: LOSARTAN 50 MG TABLET PO SCH (10:17)
[2019-01-27] MEDS: METOPROLOL TARTRATE 50 MG TABLET PO SCH ×2 (10:17→22:07)
[2019-01-27] MEDS: PANTOPRAZOLE 40 MG VIAL IV SCH ×2 (10:18→22:07)
[2019-01-27] MEDS: ASPIRIN EC 81 MG TABLET PO SCH (10:18)
[2019-01-27] MEDS: SERTRALINE 50 MG TABLET PO SCH (10:18)
[2019-01-27] MEDS: ATORVASTATIN 10 MG TABLET PO SCH (22:06)
[2019-01-27] MEDS: DONEPEZIL 10 MG TABLET PO SCH (22:06)
[2019-01-28] MEDS: dilTIAZem Drip 125 MG/125 ML PREMIX IV SCH (05:00)
[2019-01-28] MEDS: INSULIN REGULAR 100 UNIT/ML SUBCUT SCH ×3 (05:00→13:14)
[2019-01-28] MEDS: PANTOPRAZOLE 40 MG VIAL IV SCH (09:35)
[2019-01-28] MEDS: LOSARTAN 50 MG TABLET PO SCH (09:36)
[2019-01-28] MEDS: SERTRALINE 50 MG TABLET PO SCH (09:36)
[2019-01-28] MEDS: METOPROLOL TARTRATE 50 MG TABLET PO SCH (09:36)
[2019-01-28] MEDS: ASPIRIN EC 81 MG TABLET PO SCH (09:36)
[2019-01-28 13:44] VITALS: BP 159/79
== END 2019-01-28 16:19 | DRG 377 ==
LOC: N.EDINP 07:53 → N.ED 07:53 → N.EDINP 14:37 → N.4E 14:52 → N.ICU 01-23 02:26 → SUATTDRO 01-23 07:36 → N.TELES 01-23 13:54
PROVIDERS: ADMIT Internal Medicine Geriatric Medicine; ATTEND Emergency Medicine